=== PATIENT | male | born 1955 | race Caucasian/White ===

== ENCOUNTER → 2017-02-01 | Day surgery (SDC) | payer OTHER | END | disposition home or self-care (01) | LOC: FAS 08:15 | DX: Z12.11 Encounter for screening for malignant neoplasm of colon (principal); K21.9 Gastro-esophageal reflux disease without esophagitis; F17.210 Nicotine dependence, cigarettes, uncomplicated; I82.621 Acute embolism and thrombosis of deep veins of right upper extremity; Z85.038 Personal history of other malignant neoplasm of large intestine; Z90.49 Acquired absence of other specified parts of digestive tract; Z79.82 Long term (current) use of aspirin; Z79.899 Other long term (current) drug therapy; Z98.890 Other specified postprocedural states | CPT/HCPCS: J2704 ==

== ENCOUNTER → 2017-02-08 | Day surgery (SDC) | payer OTHER ==
[~2017-02-08] VITALS: Ht 177.8 cm; Wt 85.5 kg
[2017-02-08 14:38] LABS: HCT 45.2 % (42.0-52.0); MCH 32.7 pg (25.0-31.0); MCHC 35.4 g/dL (32.0-36.0); MCV 92.2 fL (78.0-100.0); MPV 10.3 fL (6.0-9.5); RBC 4.9 M/uL (4.70-6.00); RDW 12.8 % (11.5-14.0); WBC 7.3 K/uL (4.0-10.5)
== END | disposition home or self-care (01) ==
LOC: FAS 13:16
PROVIDERS: Legal Medicine
DX: T84.84XA Pain due to internal orthopedic prosthetic devices, implants and grafts, initial encounter (principal); K21.9 Gastro-esophageal reflux disease without esophagitis; K57.92 Diverticulitis of intestine, part unspecified, without perforation or abscess without bleeding; F17.210 Nicotine dependence, cigarettes, uncomplicated; Z90.49 Acquired absence of other specified parts of digestive tract; Z85.048 Personal history of other malignant neoplasm of rectum, rectosigmoid junction, and anus; Z86.718 Personal history of other venous thrombosis and embolism; Z92.21 Personal history of antineoplastic chemotherapy; Z92.3 Personal history of irradiation; Z79.82 Long term (current) use of aspirin; Z79.899 Other long term (current) drug therapy; Z98.890 Other specified postprocedural states
CPT/HCPCS: 36415; 71010; 73502; J0690; J1170; J2405; J2704; J2795; J3010